=== PATIENT | female | born 1975 | race African-American/Black ===

== ENCOUNTER 2016-04-27 07:50 | Day surgery (SDC) | payer OTHER ==
[2016-04-27 09:35] LABS: PROTHROMBIN TIME 13.5 SEC (11.4-15.4)
[2016-04-27 09:36] LABS: PARTIAL THROMBOPLASTIN TIME 32.4 SEC (23.5-35.8)
[2016-04-27 12:46] VITALS: BP 117/79
== END 2016-04-27 13:00 | disposition home or self-care (01) ==
LOC: RAD 07:50
PROVIDERS: ATTEND Pain Medicine Pain Medicine
PROC: B01BYZZ Fluoroscopy of Spinal Cord using Other Contrast (ICD-10-PCS; principal; 2016-04-27)
DX: M54.2 Cervicalgia (principal)
CPT/HCPCS: 36415; 72126; 72240; 85610; 85730